=== PATIENT | male | born 1980 | race Caucasian/White ===

== ENCOUNTER 2020-12-15 00:46 | Emergency (ER) | payer MEDICAID ==
[~2020-12-15] VITALS: Ht 167.6 cm; Wt 100.0 kg
[2020-12-15 02:20] VITALS: BP 133/74
== END 2020-12-15 02:30 | disposition home or self-care (01) ==
LOC: ER 00:46
DX: S30.812A Abrasion of penis, initial encounter (principal); X58.XXXA Exposure to other specified factors, initial encounter; Y93.89 Activity, other specified; Y92.013 Bedroom of single-family (private) house as the place of occurrence of the external cause; R03.0 Elevated blood-pressure reading, without diagnosis of hypertension
CPT/HCPCS: 99281

== ENCOUNTER 2023-01-19 12:52 | Emergency (ER) | payer SELFPAY ==
[~2023-01-19] VITALS: Ht 177.8 cm; Wt 102.0 kg
[2023-01-19 13:01] VITALS: O2SAT 99
[2023-01-19 14:16] LABS: BASOPHILS % 0.6 % (0.0-2.0); HEMOGLOBIN. 17.2 g/dL (14.0-18.0); LYMPHOCYTES % 36.6 % (20.0-50.0); MEAN CORPUSCULAR HEMOGLOBIN 31.3 pg (28.0-32.0); MEAN CORPUSCULAR HGB CONC 35.1 g/dL (31.0-37.0); MEAN PLATELET VOLUME 7.5 fl (7.4-10.4); MONOCYTES % 6.6 % (2.0-8.0); NEUTROPHILS % 54.2 % (40.0-76.0); PLATELET 302 x1000/uL (130-400); RED BLOOD CELL COUNT 5.51 mill/uL (4.7-6.1); RED CELL DISTRIBUTION WIDTH 12.1 % (11.6-14.6); WHITE BLOOD COUNT 6.1 x1000/uL (4.5-11.0)
[2023-01-19 14:20] LABS: CHLORIDE 99 mEq/L (98-107); INDEX HEMOLYSI 2 (1-3); INDEX ICTERIC 1 (1-4); INDEX LIPEMIC 1 (1-3); POTASSIUM 3.7 mEq/L (3.5-5.1); SODIUM 133 mEq/L (136-145)
[2023-01-19] MEDS ORDERED: ACETAMINOPHEN 325MG TABLET PO ONE (14:30)
[2023-01-19 14:31] LABS: ALANINE AMINOTRANSFERASE 63 IU/L (13-61); ALBUMIN 4.1 g/dL (3.4-5.0); ASPARTATE AMINOTRANSFERASE 28 IU/L (15-37); BILIRUBIN TOTAL 1.3 mg/dL (0.1-1.0); CARBON DIOXIDE 25 mEq/L (21-32); CREATININE 0.7 mg/dL (0.6-1.3); GLUCOSE 304 mg/dL (70-105); PROTEIN TOTAL 7.8 g/dL (6.0-8.3); UREA NITROGEN BLOOD 10 mg/dL (7-21)
[2023-01-19] MEDS ORDERED: ACETAMINOPHEN 325MG TABLET PO NR (16:45)
[2023-01-19 17:21] VITALS: BP 158/82; PULSE 78; RESP 20; TEMP 98
== END 2023-01-19 17:21 | disposition home or self-care (01) ==
LOC: ER 12:52
DX: K76.0 Fatty (change of) liver, not elsewhere classified (principal); R10.811 Right upper quadrant abdominal tenderness; M31.19 Other thrombotic microangiopathy; E11.9 Type 2 diabetes mellitus without complications; I10 Essential (primary) hypertension; Z98.890 Other specified postprocedural states
CPT/HCPCS: 36415; 71046; 76705; 80053; 85025; 85379; 99284